=== PATIENT | male | born 1975 | race Caucasian/White ===

== ENCOUNTER 2022-01-31 08:37 | Emergency (ER) | payer OTHER ==
[2022-01-31] MEDS ORDERED: PROTONIX 40 MG IV IV ONE ×2 (09:04→09:13)
[2022-01-31] MEDS ORDERED: Zofran 4 MG/2 ML VIAL IV ONE (09:04)
[2022-01-31] MEDS ORDERED: Hydromorphone 1 mg/ml Injection IV ONE (09:04)
[2022-01-31] MEDS ORDERED: Sodium Chloride 0.9% 1000 ML 1,000 ML IV STA ×2 (09:04→10:26)
--- NOTE | 2022-01-31 09:05 | ERPHSYRPT ---
- History of Present Illness Time Seen by Provider: 01/31/22 08:50 Historian: patient, family Exam Limitations: clinical condition Patient Subjective Stated Complaint: Pt states "I think I am having a gall bladder attack. I have been throwing up and everything." Triage Nursing Assessment: Pt arrives to ED in wheelchair, pt able to ambulate to bed by self, Pt alert and oriented x3, pt diaphoretic upon arrival, pt c/o L upper abd pain for 5 days with vomiting, pt's last episode of vomiting was 3 days ago, denies fever at home, rates pain 10/10 Physician History: This is a 46-year-old white male who states that he has had approximately 5 days of generalized abdominal pain. Maybe the right side is worse than the left per his report. He has never had any abdominal surgeries in the past. He is not on any medications chronically. Per family member report, he has had colonoscopies in the past. He has had this type of pain in the past and it resolved on its own. No one has been able to tell him what the diagnosis was. Patient's family member said that the patient has had bowel obstruction in the past which was treated nonoperatively with GoLYTELY and resolved on its own. Approximately 3 to 4 days ago he had episodes of vomiting. During this evaluation patient passed flatus. Patient has had diaphoresis. He denies chest pain. He denies shortness of breath. He has had no known exposures to individuals with flulike symptoms. Timing/Duration: day(s) (5), worse Activities at Onset: none Quality: cramping, pressure Abdominal Pain Onset Location: generalized abdomen Pain Radiation: no radiation Severity of Pain-Max: moderate Severity of Pain-Current: moderate Modifying Factors: Improves With: vomiting Associated Symptoms: diaphoresis, loss of appetite, nausea, vomiting, No chest pain, No fever/chills, No shortness of breath Allergies/Adverse Reactions: codeine [Codeine] Allergy (Verified 01/31/22 10:17) Hives nalbuphine HCl [From Nubain] Allergy (Verified 02/17/13 09:56) Hx Tetanus, Diphtheria Vaccination/Date Given: Yes (2010) Hx Influenza Vaccination/Date Given: Yes Hx Pneumococcal Vaccination/Date Given: Yes Immunizations Up to Date: Yes Travel Risk - International Travel Have you traveled outside of the country in past 3 weeks: No - Coronavirus Screening Are you exhibiting any of the following symptoms?: No Close contact with a COVID-19 positive Pt in past 14-21 Days: No - Vaccine Status Have you recieved a Covid-19 vaccination: No - Review of Systems Constitutional: No Symptoms Eyes: No Symptoms Ears, Nose, & Throat: No Symptoms Respiratory: No Symptoms Cardiac: No Symptoms Abdominal/Gastrointestinal: Abdominal Pain, Nausea, Vomiting, No Diarrhea, No Constipation Genitourinary Symptoms: No Symptoms Musculoskeletal: No Symptoms Skin: No Symptoms Neurological: No Symptoms Psychological: No Symptoms Endocrine: No Symptoms Hematologic/Lymphatic: No Symptoms Immunological/Allergic: No Symptoms All Other Systems: Reviewed and Negative - Past Medical History Pertinent Past Medical History: Yes Neurological History: No Pertinent History ENT History: No Pertinent History Cardiac History: No Pertinent History Respiratory History: No Pertinent History Endocrine Medical History: No Pertinent History Musculoskeletal History: No Pertinent History GI Medical History: No Pertinent History History: No Pertinent History Psycho-Social History: No Pertinent History Male Reproductive Disorders: No Pertinent History Other Medical History: digestive tract problem - Past Surgical History Past Surgical History: Yes Musculoskeletal: Orthopedic Surgery Other Surgical History: lt arm surgery, bilat great toe, testicle torsion (surgery) - Social History Smoking Status: Former smoker Exposure to second hand smoke: Yes Drug Use: none Patient Lives Alone: No - Nursing Vital Signs Nursing Vital Signs: Initial Vital Signs Temperature 98.2 F 01/31/22 08:38 Pulse Rate 75 01/31/22 08:38 Respiratory Rate 18 01/31/22 08:38 Blood Pressure 115/70 01/31/22 08:38 O2 Sat by Pulse Oximetry 98 01/31/22 08:38 Pain Scale Pain Intensity 7 - Physical Exam General Appearance: mild distress, alert, anxiety Eye Exam: PERRL/EOMI, eyes nml inspection Ears, Nose, Throat Exam: normal ENT inspection, moist mucous membranes Neck Exam: normal inspection, non-tender, supple, full range of motion Respiratory Exam: normal breath sounds, lungs clear, airway intact, No chest tenderness, No respiratory distress Cardiovascular Exam: regular rate/rhythm, normal heart sounds, normal peripheral pulses Gastrointestinal/Abdomen Exam: soft, normal bowel sounds, tenderness, guarding, No rebound Rectal Exam: not done Back Exam: normal inspection, normal range of motion, No CVA tenderness, No ve rtebral tenderness Extremity Exam: normal inspection, normal range of motion, pelvis stable Neurologic Exam: alert, oriented x 3, cooperative, dual rate supervisor II-XII nml as tested, normal mood/affect, nml cerebellar function, nml station & gait, sensation nml Skin Exam: normal color, warm, dry, diaphoresis Lymphatic Exam: No adenopathy SpO2 Interpretation: normal SpO2: 98 O2 Delivery: Room Air - Course Nursing assessment & vital signs reviewed: Yes EKG Interpreted by Me: RATE (74), Sinus Rhythm, NORMAL AXIS, NORMAL INTERVALS, NORMAL QRS, Other (No comparison EKG available for review. There are no acute ischemic changes on today's EKG) Ordered Tests: Active Orders 24 hr Category Date Time Status Clean Catch Urine Specimen STAT Care 01/31/22 09:04 Active EKG-ER Only STAT Care 01/31/22 09:04 Active IV Insertion STAT Care 01/31/22 09:04 Active ABDOMEN AND PELVIS W/0 CONTRAS [CT] Stat Exams 01/31/22 09:05 Completed AMYLASE Stat Lab 01/31/22 09:16 Completed BLOOD CULTURE Stat Lab 01/31/22 09:24 Received CBC W DIFF Stat Lab 01/31/22 09:00 Completed CMP Stat Lab 01/31/22 09:16 Completed COVID AG-BINAX NOW RAPID TEST Stat Lab 01/31/22 10:50 Completed INFLUENZA A+B VIMAL Stat Lab 01/31/22 10:50 Completed LIPASE Stat Lab 01/31/22 09:16 Completed Lactic Acid Stat Lab 01/31/22 09:20 Completed Bay Screen Stat Lab 01/31/22 Ordered TROPONIN Q3H Lab 01/31/22 09:00 Completed TROPONIN Q3H Lab 01/31/22 12:15 Ordered TROPONIN Q3H Lab 01/31/22 15:15 Ordered TROPONIN Q3H Lab 01/31/22 18:15 Ordered TROPONIN Q3H Lab 01/31/22 21:15 Ordered Urine Triage Profile Stat Lab 01/31/22 10:40 Completed Medication Summary Discontinued Medications Generic Name Dose Route Start Last Admin Trade Name Freq PRN Reason Stop Dose Admin Methylprednisolone Sodium 0 mg 01/31/22 10:19 01/31/22 10:23 Succinate 125 mg/ Sterile IV 01/31/22 10:20 125 mg Water 2 ml STAT ONE Administration Methylprednisolone Sodium 0 mg 01/31/22 10:21 01/31/22 10:24 Succinate 125 mg/ Sterile IV 01/31/22 10:22 Not Given Water 2 ml STAT ONE Diphenhydramine HCl Confirm 01/31/22 10:09 Diphenhydramine Hcl 50 Mg/Ml Vial Administered 01/31/22 10:10 Dose 50 mg .ROUTE .STK-MED ONE Diphenhydramine HCl 50 mg 01/31/22 10:19 01/31/22 10:23 Diphenhydramine Hcl 50 Mg/Ml Vial IV 01/31/22 10:20 50 mg STAT ONE Administration Diphenhydramine HCl 50 mg 01/31/22 10:21 01/31/22 10:24 Diphenhydramine Hcl 50 Mg/Ml Vial IV 01/31/22 10:22 Not Given STAT ONE Hydromorphone HCl 1 mg 01/31/22 09:04 01/31/22 09:22 Hydromorphone 1 Mg/1ml Inj 1 Mg/Ml Syringe IV 01/31/22 09:05 Not Given STAT ONE Sodium Chloride 1,000 mls @ 999 mls/hr 01/31/22 09:04 01/31/22 10:24 Sodium Chloride 0.9% 1000 Ml IV 01/31/22 10:04 Infused .Q1H1M STA Infusion Sodium Chloride Confirm 01/31/22 09:13 Sodium Chloride 0.9% 1000 Ml Administered 01/31/22 09:14 Dose 1,000 mls @ ud .ROUTE .STK-MED ONE Sodium Chloride 1,000 mls @ 999 mls/hr 01/31/22 10:26 01/31/22 11:39 Sodium Chloride 0.9% 1000 Ml IV 01/31/22 11:26 Infused .Q1H1M STA Infusion Sodium Chloride Confirm 01/31/22 10:33 Sodium Chloride 0.9% 1000 Ml Administered 01/31/22 10:34 Dose 1,000 mls @ ud .ROUTE .STK-MED ONE Methylprednisolone Sodium Succinate Confirm 01/31/22 10:09 Methylprednis Sod Succ 125 Mg/2 Ml Vial Administered 01/31/22 10:10 Dose 125 mg .ROUTE .STK-MED ONE Morphine Sulfate 4 mg 01/31/22 09:10 01/31/22 09:20 Morphine Sulfate 4 Mg/Ml Injection IV 01/31/22 09:11 4 mg STAT ONE Administration Morphine Sulfate Confirm 01/31/22 09:13 Morphine Sulfate 4 Mg/Ml Injection Administered 01/31/22 09:14 Dose 4 mg .ROUTE .STK-MED ONE Ondansetron HCl 4 mg 01/31/22 09:04 01/31/22 09:19 Ondansetron Hcl 4 Mg/2 Ml Vial IV 01/31/22 09:05 4 mg STAT ONE Administration Ondansetron HCl Confirm 01/31/22 09:13 Ondansetron Hcl 4 Mg/2 Ml Vial Administered 01/31/22 09:14 Dose 4 mg .ROUTE .STK-MED ONE Pantoprazole Sodium 40 mg 01/31/22 09:04 01/31/22 09:19 Pantoprazole 40 Mg Vial IV 01/31/22 09:05 40 mg STAT ONE Administration Pantoprazole Sodium Confirm 01/31/22 09:13 Pantoprazole 40 Mg Vial Administered 01/31/22 09:14 Dose 40 mg IV .STK-MED ONE Sterile Water Confirm 01/31/22 10:09 Water For Injection,Sterile 10 Ml Vial Administered 01/31/22 10:10 Dose 10 ml IJ .STK-MED ONE Lab/Rad Data: Laboratory Result Diagrams 01/31/22 09:00 01/31/22 09:16 Laboratory Results 01/31/22 01/31/22 01/31/22 Range/Units 10:50 10:50 10:40 WBC (4.0-10.5) K/mm3 RBC (4.1-5.6) M/mm3 Hgb (12.5-18.0) gm/dl Hct (42-50) % MCV (78-100) fl MCH (26-32) pg MCHC (32-36) g/dl RDW (11.5-14.0) % Plt Count (150-450) K/mm3 MPV (7.5-11.0) fl Gran % (36.0-66.0) % Eos # (Auto) (0-0.5) Absolute Lymphs (auto) (1.0-4.6) Absolute Monos (auto) (0.0-1.3) Lymphocytes % (24.0-44.0) % Monocytes % (0.0-12.0) % Eosinophils % (0.00-5.0) % Basophils % (0.0-0.4) % Absolute Granulocytes (1.4-6.9) Basophils # (0-0.4) Sodium (137-145) mmol/L Potassium (3.5-5.1) mmol/L Chloride (98-107) mmol/L Carbon Dioxide (22-30) mmol/L Anion Gap (5-15) MEQ/L BUN (9-20) mg/dL Creatinine (0.66-1.25) mg/dL Estimated GFR ML/MIN Glucose (74-106) mg/dL Lactic Acid (0.4-2.0) Calcium (8.4-10.2) mg/dL Total Bilirubin (0.2-1.3) mg/dL AST (17-59) U/L ALT (0-50) U/L Alkaline Phosphatase (38-126) U/L Troponin I (0.000-0.034) ng/mL Serum Total Protein (6.3-8.2) g/dL Albumin (3.5-5.0) g/dL Amylase (30-110) U/L Lipase (23-300) U/L Urinalys Dipstick Clnc Urine Color Urine Appearance Urine pH Ur Specific [place] Urine Protein POC Urine Protein Conf (Negative) Urine Ketones Urine Blood Urine Nitrite Urine Bilirubin Urine Urobilinogen Ur Leukocyte Esterase Urine Leukocytes (NEGATIVE) Urine WBC (Auto) (0-5) /HPF Urine RBC (Auto) (0-2) /HPF U Epithel Cells (Auto) (FEW) /HPF Urine Bacteria (Auto) (NEGATIVE) /HPF Urine RBC (0-5) Mason/ul U Non-Squamous Epi Cells Unidentified Crystals (NEGATIVE) /HPF Urine Mucus (Auto) (NEGATIVE) /HPF Ur Culture Indicated? Urine Culture Reflexed Urine Glucose (NEGATIVE) mg/dL Urine Opiates Level POSITIVE (NEGATIVE) Ur Methadone NEGATIVE (NEGATIVE) Urine Barbiturates NEGATIVE (NEGATIVE) Ur Phencyclidine (PCP) NEGATIVE (NEGATIVE) Urine Amphetamine POSITIVE (NEGATIVE) U Benzodiazepine Level NEGATIVE (NEGATIVE) Urine Cocaine NEGATIVE (NEGATIVE) Urine Marijuana (THC) POSITIVE (NEGATIVE) Influenza Type A Ag NEGATIVE (NEGATIVE) Influenza Type B Ag NEGATIVE (NEGATIVE) SARS-CoV-2 Ag (Rapid) NEGATIVE (NEGATIVE) 03/18/22 03/18/22 03/18/22 Range/Units 10:40 09:20 09:16 WBC (4.0-10.5) K/mm3 RBC (4.1-5.6) M/mm3 Hgb (12.5-18.0) gm/dl Hct (42-50) % MCV (78-100) fl MCH (26-32) pg MCHC (32-36) g/dl RDW (11.5-14.0) % Plt Count (150-450) K/mm3 MPV (7.5-11.0) fl Gran % (36.0-66.0) % Eos # (Auto) (0-0.5) Absolute Lymphs (auto) (1.0-4.6) Absolute Monos (auto) (0.0-1.3) Lymphocytes % (24.0-44.0) % Monocytes % (0.0-12.0) % Eosinophils % (0.00-5.0) % Basophils % (0.0-0.4) % Absolute Granulocytes (1.4-6.9) Basophils # (0-0.4) Sodium 134 L (137-145) mmol/L Potassium 3.4 L (3.5-5.1) mmol/L Chloride 100 (98-107) mmol/L Carbon Dioxide 22 (22-30) mmol/L Anion Gap 14.6 (5-15) MEQ/L BUN 11 (9-20) mg/dL Creatinine 0.68 (0.66-1.25) mg/dL Estimated GFR > 60.0 ML/MIN Glucose 140 H (74-106) mg/dL Lactic Acid 1.7 (0.4-2.0) Calcium 8.8 (8.4-10.2) mg/dL Total Bilirubin 0.50 (0.2-1.3) mg/dL AST 15 L (17-59) U/L ALT 18 (0-50) U/L Alkaline Phosphatase 116 (38-126) U/L Troponin I (0.000-0.034) ng/mL Serum Total Protein 7.1 (6.3-8.2) g/dL Albumin 4.0 (3.5-5.0) g/dL Amylase 45 (30-110) U/L Lipase 66 (23-300) U/L Urinalys Dipstick Clnc MAIN LAB Urine Color Cancelled Urine Appearance Cancelled Urine pH Cancelled Ur Specific [place] Cancelled Urine Protein Cancelled POC Urine Protein Conf 30 (Negative) Urine Ketones Cancelled Urine Blood Cancelled Urine Nitrite Cancelled Urine Bilirubin Cancelled Urine Urobilinogen Cancelled Ur Leukocyte Esterase Cancelled Urine Leukocytes NEGATIVE (NEGATIVE) Urine WBC (Auto) 0-2 (0-5) /HPF Urine RBC (Auto) 11-15 (0-2) /HPF U Epithel Cells (Auto) NONE (FEW) /HPF Urine Bacteria (Auto) NONE (NEGATIVE) /HPF Urine RBC NEGATIVE (0-5) Mason/ul U Non-Squamous Epi Cells Cancelled Unidentified Crystals >100 (NEGATIVE) /HPF Urine Mucus (Auto) MODERATE (NEGATIVE) /HPF Ur Culture Indicated? NO Urine Culture Reflexed Cancelled Urine Glucose NEGATIVE (NEGATIVE) mg/dL Urine Opiates Level (NEGATIVE) Ur Methadone (NEGATIVE) Urine Barbiturates (NEGATIVE) Ur Phencyclidine (PCP) (NEGATIVE) Urine Amphetamine (NEGATIVE) U Benzodiazepine Level (NEGATIVE) Urine Cocaine (NEGATIVE) Urine Marijuana (THC) (NEGATIVE) Influenza Type A Ag (NEGATIVE) Influenza Type B Ag (NEGATIVE) SARS-CoV-2 Ag (Rapid) (NEGATIVE) 01/31/22 01/31/22 Range/Units 09:00 09:00 WBC 11.3 H (4.0-10.5) K/mm3 RBC 5.49 (4.1-5.6) M/mm3 Hgb 15.9 (12.5-18.0) gm/dl Hct 47.3 (42-50) % MCV 86.2 (78-100) fl MCH 29.0 (26-32) pg MCHC 33.6 (32-36) g/dl RDW 13.1 (11.5-14.0) % Plt Count 402 (150-450) K/mm3 MPV 8.9 (7.5-11.0) fl Gran % 57.5 (36.0-66.0) % Eos # (Auto) 0.20 (0-0.5) Absolute Lymphs (auto) 2.98 (1.0-4.6) Absolute Monos (auto) 1.62 H (0.0-1.3) Lymphocytes % 26.3 (24.0-44.0) % Monocytes % 14.3 H (0.0-12.0) % Eosinophils % 1.8 (0.00-5.0) % Basophils % 0.1 (0.0-0.4) % Absolute Granulocytes 6.52 (1.4-6.9) Basophils # 0.01 (0-0.4) Sodium (137-145) mmol/L Potassium (3.5-5.1) mmol/L Chloride (98-107) mmol/L Carbon Dioxide (22-30) mmol/L Anion Gap (5-15) MEQ/L BUN (9-20) mg/dL Creatinine (0.66-1.25) mg/dL Estimated GFR ML/MIN Glucose (74-106) mg/dL Lactic Acid (0.4-2.0) Calcium (8.4-10.2) mg/dL Total Bilirubin (0.2-1.3) mg/dL AST (17-59) U/L ALT (0-50) U/L Alkaline Phosphatase (38-126) U/L Troponin I < 0.012 (0.000-0.034) ng/mL Serum Total Protein (6.3-8.2) g/dL Albumin (3.5-5.0) g/dL Amylase (30-110) U/L Lipase (23-300) U/L Urinalys Dipstick Clnc Urine Color Urine Appearance Urine pH Ur Specific [place] Urine Protein POC Urine Protein Conf (Negative) Urine Ketones Urine Blood Urine Nitrite Urine Bilirubin Urine Urobilinogen Ur Leukocyte Esterase Urine Leukocytes (NEGATIVE) Urine WBC (Auto) (0-5) /HPF Urine RBC (Auto) (0-2) /HPF U Epithel Cells (Auto) (FEW) /HPF Urine Bacteria (Auto) (NEGATIVE) /HPF Urine RBC (0-5) Mason/ul U Non-Squamous Epi Cells Unidentified Crystals (NEGATIVE) /HPF Urine Mucus (Auto) (NEGATIVE) /HPF Ur Culture Indicated? Urine Culture Reflexed Urine Glucose (NEGATIVE) mg/dL Urine Opiates Level (NEGATIVE) Ur Methadone (NEGATIVE) Urine Barbiturates (NEGATIVE) Ur Phencyclidine (PCP) (NEGATIVE) Urine Amphetamine (NEGATIVE) U Benzodiazepine Level (NEGATIVE) Urine Cocaine (NEGATIVE) Urine Marijuana (THC) (NEGATIVE) Influenza Type A Ag (NEGATIVE) Influenza Type B Ag (NEGATIVE) SARS-CoV-2 Ag (Rapid) (NEGATIVE) - Progress Progress: improved Progress Note: 01/31/22 09:11 Patient states that he has had morphine in the past without any adverse reactions. Codeine gives him nausea. Therefore, I will discontinue the hydromorphone (Dilaudid) and provide the patient on intravenous morphine. 01/31/22 10:17 Patient does state that his nausea and pain has improved. However, despite him having intravenous morphine in the past without adverse reaction, he actually had a reaction today to morphine intravenously which included a rash, welts and skin redness. He is not wheezing and he is not short of breath. We provided the patient with 50 mg of intravenous Benadryl and 125 mg intravenous Solu- Medrol 01/31/22 10:22 CAT scan of the abdomen pelvis without contrast shows mild fluid distention of the stomach, small bowel and large bowel. There is no free fluid or free air noted. Ileus versus gastroenterocolitis Counseled pt/family regarding: lab results, diagnosis, need for follow-up, rad results - Departure Departure Disposition: Home Clinical Impression: Enterocolitis, Allergic reaction Condition: Stable Critical Care Time: No Referrals: TIFFANY PHAM [COURTESY STAFF] - Follow up/PCP as directed Additional Instructions: Drink plenty of clear liquids. Take Benadryl 25 mg orally 3 times a day for the next 4 days Prescriptions: Ondansetron ODT 4 MG [Zofran Odt 4 mg] 4 mg PO Q6H PRN PRN #10 tablet PRN Reason: Vomiting Prednisone 10 mg [Deltasone 10 mg] 10 mg PO TID #12 tablet Metronidazole 500 mg [Flagyl 500 MG] 500 mg PO TID #21 tablet
[2022-01-31] MEDS ORDERED: MORPHINE SULFATE 4 MG INJ IV ONE (09:10)
[2022-01-31] MEDS ORDERED: Zofran 4 MG/2 ML VIAL ONE (09:13)
[2022-01-31] MEDS ORDERED: Sodium Chloride 0.9% 1000 ML 1,000 ML ONE ×2 (09:13→10:33)
[2022-01-31] MEDS ORDERED: MORPHINE SULFATE 4 MG INJ ONE (09:13)
[2022-01-31 09:32] LABS: Absolute Neutrophil Ct (ANC) 6.52 (1.4-6.9); Basophil (Absolute #) 0.01 (0-0.4); Eosinophil % 1.8 % (0.00-5.0); Hematocrit 47.3 % (42-50); Hemoglobin 15.9 gm/dl (12.5-18.0); Lymphocyte (Absolute #) 2.98 (1.0-4.6); Lymphocytes % 26.3 % (24.0-44.0); Mean Cell Volume 86.2 fl (78-100); Mean Corpuscular Hgb Concent. 33.6 g/dl (32-36); Mean Platelet Volume 8.9 fl (7.5-11.0); Monocyte (Absolute #) 1.62 (0.0-1.3); Monocytes % 14.3 % (0.0-12.0); Neutrophil % 57.5 % (36.0-66.0); Platelet Count 402 K/mm3 (150-450); Red Blood Count 5.49 M/mm3 (4.1-5.6); Red Cell Distribution Width 13.1 % (11.5-14.0); White Blood Count 11.3 K/mm3 (4.0-10.5)
[2022-01-31 09:55] LABS: ALKALINE PHOSPHATASE 116 U/L (38-126); AMYLASE 45 U/L (30-110); ANION GAP 14.6 MEQ/L (5-15); BLOOD UREA NITROGEN 11 mg/dL (9-20); CHLORIDE 100 mmol/L (98-107); Calcium 8.8 mg/dL (8.4-10.2); Carbon Dioxide 22 mmol/L (22-30); Creatinine 1 0.68 mg/dL (0.66-1.25); EST GLOMERULAR FILTRATION RATE > 60.0 ML/MIN; Glucose 140 mg/dL (74-106); LIPASE 66 U/L (23-300); Potassium 3.4 mmol/L (3.5-5.1); SGOT/AST 15 U/L (17-59); SGPT/ALT 18 U/L (0-50); SODIUM 134 mmol/L (137-145); Total Protein 7.1 g/dL (6.3-8.2)
--- NOTE | 2022-01-31 09:58 | XRAY ---
Indication: Abdomen pain 5 days. Nausea, vomiting, constipation, and diarrhea. Multiple contiguous axial images obtained through the abdomen and pelvis without contrast. Comparison: None Lung bases demonstrate minimal dependent atelectasis. Heart not enlarged. Stomach, small bowel, and large bowel loops are mildly fluid distended with synchronous fluid leveling, ileus versus gastroenterocolitis. No free fluid/air. Remaining liver, gallbladder, pancreas, spleen, adrenal glands, kidneys, ureters, and bladder appear unremarkable for noncontrast exam. Minimal aortic calcifications without AAA. Osseous structures intact. No ventral or inguinal hernias. Impression: Mild fluid distended stomach, small bowel, and large bowel loops with synchronous fluid leveling. Rule out ileus versus gastroenterocolitis.
[2022-01-31] MEDS ORDERED: BENADRYL 50 MG/ML ONE (10:09)
[2022-01-31] MEDS ORDERED: solu-MEDROL ONE (10:09)
[2022-01-31] MEDS ORDERED: Sterile H2O 10 ml IJ ONE (10:09)
[2022-01-31] MEDS ORDERED: solu-MEDROL 125 MG, Sterile H2O 10 ml 2 ML IV ONE ×4 (10:19→10:21)
[2022-01-31] MEDS ORDERED: BENADRYL 50 MG/ML IV ONE ×2 (10:19→10:21)
[2022-01-31 11:22] LABS: Appearance SLIGHTLY CLOUDY (CLEAR); Bilirubin NEGATIVE (NEGATIVE); Glucose NEGATIVE (NEGATIVE)
[2022-01-31 11:23] LABS: Ketones NEGATIVE (NEGATIVE); Nitrite NEGATIVE (NEGATIVE); Protein,Urine Dip 30 (Negative); RBC NEGATIVE Ery/ul (0-5); Specific Gravity 1.025 (1.005-1.025); Urobilinogen 0.2 mg/dL (0-1)
[2022-01-31 11:36] LABS: Barbiturate,Urine NEGATIVE (NEGATIVE); Benzodiazepine,Urine NEGATIVE (NEGATIVE); Cocaine,Urine NEGATIVE (NEGATIVE); Methadone,Urine NEGATIVE (NEGATIVE); THC,Urine POSITIVE (NEGATIVE)
[2022-01-31 11:42] LABS: Opiate,Urine POSITIVE (NEGATIVE); PCP,Urine NEGATIVE (NEGATIVE)
[2022-01-31 12:00] LABS: Amphetamine,Urine POSITIVE (NEGATIVE)
[2022-01-31 12:03] LABS: INFLUENZA A NEGATIVE (NEGATIVE); INFLUENZA B NEGATIVE (NEGATIVE)
[2022-01-31 12:04] LABS: COVID AG -BINAX NOW RAPID TEST NEGATIVE (NEGATIVE)
[2022-01-31 12:11] LABS: Crystals Unidentified >100 /HPF (NEGATIVE); Mucus MODERATE /HPF (NEGATIVE); WBC 0-2 /HPF (0-5)
[2022-01-31 12:13] LABS: Dipstick done @ ? MAIN LAB
[2022-01-31 12:33] VITALS: BP 130/76; PULSE 88; O2SAT 97
== END 2022-01-31 12:34 | disposition home or self-care (01) ==
LOC: ED 08:37
DX: K52.9 Noninfective gastroenteritis and colitis, unspecified (principal); R10.84 Generalized abdominal pain; L27.0 Generalized skin eruption due to drugs and medicaments taken internally; T40.2X5A Adverse effect of other opioids, initial encounter; R11.2 Nausea with vomiting, unspecified; Z79.52 Long term (current) use of systemic steroids
CPT/HCPCS: 36000; 36415; 74176; 80053; 80307; 81015; 82150; 83605; 83690; 84484; 85025; 86308; 87040; 87400; 93005; 96360; 96365; 96374; 96375; 99000; 99285; J1200; J2270; J2405; J2930

== ENCOUNTER 2023-04-29 14:04 | Day surgery (SDC) | payer OTHER ==
[2023-04-29] MEDS ORDERED: Depo-Medrol 40 MG/ML IM ONE (14:05)
[2023-04-29] MEDS ORDERED: BUPIVACAINE 0.5% VIAL IJ ONE (14:05)
[2023-04-29] MEDS ORDERED: DIPRIVAN 200 MG/20 ML IV ONE ×2 (15:34→15:44)
[2023-04-29] MEDS ORDERED: Lactated Ringers 1,000 ML IV ONE (16:21)
--- NOTE | 2023-04-29 16:27 | XRAY ---
14 seconds of fluoroscopy was used in surgery for a left intra-articular shoulder and left subacromial bursa injection.
--- NOTE | 2023-04-29 16:33 | XRAY ---
Indication: Left shoulder and subacromial bursa injection. Intraoperative fluoroscopy provided for 14 seconds. 2 digital spot image submitted for interpretation demonstrates needle tip projecting over the left glenohumeral joint superiorly. Second needle tip subacromial. Small amount of contrast injected for both needle tip placement. Correlate with intraoperative findings/report.
== END 2023-04-29 16:05 | disposition home or self-care (01) ==
LOC: SDC-PAIN 14:04
PROVIDERS: ATTEND Psychiatry & Neurology Pain Medicine
DX: M19.012 Primary osteoarthritis, left shoulder (principal); M75.52 Bursitis of left shoulder; Z79.899 Other long term (current) drug therapy
CPT/HCPCS: 20610; 73030; 77002; J1030; J2704; Q9966